=== PATIENT | male | born 1935 | race Caucasian/White ===

== ENCOUNTER → 2019-09-30 | Outpatient (CLI) | payer OTHER ==
[~2019-09-30] MED LIST: AMLO10TA7 PO; APIX5TAB PO; FURO20TA4 PO; GABA-531 PO; IPRA3AMP24 IH; METO-391 PO; OMEP20CA12 PO; SIMV-46 PO
== END | disposition home or self-care (01) ==
LOC: OIH 10:08
PROVIDERS: ATTEND Family Medicine
DX: J84.10 Pulmonary fibrosis, unspecified (principal); I10 Essential (primary) hypertension
CPT/HCPCS: 71046

== ENCOUNTER → 2019-10-06 | Outpatient (CLI) | payer OTHER | END | disposition home or self-care (01) | LOC: RAH 10:00 | PROVIDERS: ATTEND Family Medicine | DX: I08.1 Rheumatic disorders of both mitral and tricuspid valves (principal) | CPT/HCPCS: 93306; 93356 ==

== ENCOUNTER 2019-10-27 10:11 | Inpatient (IN) | payer OTHER ==
[~2019-10-27] VITALS: Ht 177.8 cm; Wt 85.7 kg
[2019-10-27 11:34] LABS: BASOPHILS % (AUTO) 0.1 % (0.0-5.0); EOSINOPHILS % (AUTO) 1.8 % (0.0-8.0); HEMATOCRIT 40.7 % (42-54); LYMPHOCYTES % (AUTO) 7.5 % (21.0-51.0); MEAN CORPUSCULAR HEMOGLOBIN 26.3 pg (27.0-33.0); MEAN CORPUSCULAR HGB CONC 32.4 g/dL (32.0-36.0); MEAN CORPUSCULAR VOLUME 81.1 fL (79-99); MONOCYTES % (AUTO) 9.2 % (3.0-13.0); NEUTROPHILS % (AUTO) 80.9 % (40.0-77.0); PLATELET COUNT (AUTO) 241 K/uL (130-400); RED BLOOD CELL COUNT(AUTO) 5.02 MIL/uL (4.50-6.20); RED CELL DISTRIBUTION WIDTH 15.7 % (11.0-15.5); WHITE BLOOD COUNT (AUTO) 13.5 K/uL (4.8-10.8)
[2019-10-27 11:38] LABS: CREATININE 1.4 mg/dL (0.5-1.5); POTASSIUM 3.8 mmol/L (3.5-5.1)
[2019-10-27 11:42] LABS: INR 1.08 (0.85-1.15); PARTIAL THROMBOPLASTIN TIME 27.8 SEC (26.3-35.5); PROTHROMBIN TIME 11.6 SEC (9.6-11.6)
[2019-10-27 11:43] LABS: ALBUMIN 3.2 g/dL (3.5-5.0); BILIRUBIN,TOTAL 0.7 mg/dL (0.2-1.0); TOTAL PROTEIN, SERUM 6.4 g/dL (6.0-8.3)
[2019-10-27 12:18] LABS: B-TYPE NATRIURETIC PEPTIDE 767 pg/mL (0-100)
[2019-10-27] MEDS ORDERED: IPRATROPIUM/ALBUTEROL SULFATE 3 ML SOLUTION IH ONE (13:03)
[2019-10-27] MEDS ORDERED: SODIUM CHLORIDE 0.9% 10 ML VIAL IVP PRN (16:30)
[2019-10-27] MEDS ORDERED: ASPIRIN 325 MG TABLET ONE (16:34)
[2019-10-27] MEDS ORDERED: FUROSEMIDE 10 MG/ML 4ML VIAL ONE (16:34)
[2019-10-27 17:28] LABS: CREATINE KINASE, TOTAL 221 U/L (21-232); MYOGLOBIN 140 ng/mL (10-92); TROPONIN I < 0.04 ng/mL (0.00-0.06)
[2019-10-27] MEDS ORDERED: METOPROLOL TARTRATE 25 MG TAB ONE (20:55)
[2019-10-27] MEDS: METOPROLOL TARTRATE 25 MG TAB PO SCH (21:00)
[2019-10-27 22:10] VITALS: BP 112/67
[2019-10-27] MEDS ORDERED: AMLO-258 PO (22:44)
[2019-10-27] MEDS ORDERED: SIMV-46 PO (22:44)
[2019-10-27] MEDS ORDERED: GABA-531 PO (22:44)
[2019-10-27] MEDS ORDERED: OMEP20CA12 PO (22:44)
[2019-10-27] MEDS ORDERED: FURO20TA4 PO (22:44)
[2019-10-27] MEDS ORDERED: APIX5TAB PO (22:44)
[2019-10-27] MEDS ORDERED: METO-391 PO (22:44)
[2019-10-27] MEDS: FUROSEMIDE 10 MG/ML 4ML VIAL IVP SCH (23:00)
[2019-10-28 00:40] LABS: CREATINE KINASE, TOTAL 204 U/L (21-232); MYOGLOBIN 191 ng/mL (10-92); TROPONIN I < 0.04 ng/mL (0.00-0.06)
[2019-10-28 04:00] VITALS: BP 96/52
[2019-10-28] MEDS: FUROSEMIDE 10 MG/ML 4ML VIAL IVP SCH ×2 (05:00→16:53)
[2019-10-28 08:10] VITALS: BP 105/75
[2019-10-28] MEDS ORDERED: ASPIRIN 325 MG TABLET PO SCH (09:00)
--- NOTE | 2019-10-28 09:30 | NUR ---
CHART REVIEWED, PT DISCUSSED WITH PRIMARY RN YASMANI ADVISED BY YASMANI THAT HOME MEDS HAVE NOT YET BEEN STARTED. NOT MADE FO AMLOPINES, ETC THAT ARE NOT YET ON MED LIST. YASMANI STATES PT SHORT OF BREATH, HAD TO BE PUT ON OXYGEN FOR RESPRIAOTRY EFFORT. SPOKE TO PATIENT AT BEDSIDE. PATIENT LIVES ALONE, IS A , CONFIRMED DOES NOT USE O2 AT HOME. CURRENTLY BEING DIURESED, WILL EXPECT THIS WILL ALLEVIATE SOME OF THE RESP ISSUES. DO NOT EXPECT PT TO NEED O2 OR PLACEMENT ON DISCHARGE..PENDING DETAILED IA BY TUMBLER TENDER. Addendum: 10/28/19 at 1243 by ZIA CHAVEZ RN CM Amended: Links added.
[2019-10-28] MEDS ORDERED: IPRA3AMP24 IH (09:32)
[2019-10-28] MEDS: METOPROLOL TARTRATE 25 MG TAB PO SCH ×2 (09:34→20:08)
[2019-10-28] MEDS ORDERED: ENOXAPARIN SODIUM 1 MG/KG SQ SCH (10:00)
[2019-10-28] MEDS: ENOXAPARIN SODIUM 100 MG/1 ML SQ SCH ×2 (10:50→20:07)
[2019-10-28 10:59] LABS: BASOPHILS % (AUTO) 0.2 % (0.0-5.0); HEMATOCRIT 41.9 % (42-54); LYMPHOCYTES % (AUTO) 9.4 % (21.0-51.0); MEAN CORPUSCULAR HEMOGLOBIN 26.1 pg (27.0-33.0); MEAN CORPUSCULAR HGB CONC 31.7 g/dL (32.0-36.0); MEAN CORPUSCULAR VOLUME 82.3 fL (79-99); MONOCYTES % (AUTO) 9.5 % (3.0-13.0); NEUTROPHILS % (AUTO) 78.4 % (40.0-77.0); PLATELET COUNT (AUTO) 253 K/uL (130-400); RED BLOOD CELL COUNT(AUTO) 5.09 MIL/uL (4.50-6.20); RED CELL DISTRIBUTION WIDTH 15.8 % (11.0-15.5)
[2019-10-28 11:00] VITALS: BP 106/70
[2019-10-28 11:05] LABS: CREATININE 1.3 mg/dL (0.5-1.5); POTASSIUM 3.5 mmol/L (3.5-5.1)
--- NOTE | 2019-10-28 13:21 | NUR ---
INITIAL SW spoke patient. Patient states he lives alone. Emergency contact is his daughter, Aura Schmitt, . No home services. DME: BPM, shower chair, nebulizer. Patient is able to complete ADL's independently and drives. PCP is Dr. Robles Campbell. Pharmacy is [facility] located on [facility] [place]. DCP is home. Addendum: 10/28/19 at 1324 by ANJEL CONDE SS Amended: Links added. Addendum: 10/28/19 at 1325 by ANJEL CONDE SS SW contacted Radha Guerrier, Inpatient Contract Cancer Program Consultant at [place]. [facility]hy informed GIRISH that patient was Not Service Connected. CM made aware.
[2019-10-28 16:00] VITALS: BP 116/61
[2019-10-28 20:24] VITALS: BP 115/66
[2019-10-28] MEDS ORDERED: SIMVASTATIN 20 MG TABLET PO SCH (21:00)
[2019-10-29 00:32] VITALS: BP 98/62
[2019-10-29 04:17] VITALS: BP 91/51
[2019-10-29] MEDS: FUROSEMIDE 10 MG/ML 4ML VIAL IVP SCH (05:50)
[2019-10-29 08:00] VITALS: BP 100/68
--- NOTE | 2019-10-29 08:25 | NUR ---
SPOKE WITH DR. LUA CARDIO STATES PATIENT WILL NEED A 2D ECHO
[2019-10-29] MEDS ORDERED: ASPIRIN 81MG TAB.CHEW PO SCH (09:00)
[2019-10-29] MEDS: METOPROLOL TARTRATE 25 MG TAB PO SCH (09:43)
[2019-10-29] MEDS: ENOXAPARIN SODIUM 100 MG/1 ML SQ SCH (09:45)
[2019-10-29] MEDS ORDERED: REGADENOSON 0.4 MG/5 ML PF SYG IVP SCH (10:30)
[2019-10-29 16:00] VITALS: BP 154/63
--- NOTE | 2019-10-29 18:02 | NUR ---
STRESS TEST RESULTS BACK, PAGED DR. LUA
[2019-10-29] MEDS ORDERED: POTASSIUM CHLORIDE 20 MEQ ERTAB PO ONE (18:25)
--- NOTE | 2019-10-29 18:28 | NUR ---
INFLUENZA VACCINE STATES HAD INFLUENZA VACCINE IN Addendum: 10/29/19 at 1832 by BELEN FARRIS RN Amended: Links added.
--- NOTE | 2019-10-29 18:40 | NUR ---
DR LUA ORDERED K KCL 20MEQ 1 TAB BY MOUTH DAILY CALLED IN TO [facility]. SPOKE WITH PHARMACIST KATEY.
[2019-10-29] MEDS ORDERED: POTASSIUM CHLORIDE 20 MEQ ERTAB PO SCH (18:45)
--- NOTE | 2019-10-29 18:48 | NUR ---
PT D/C HOME BY CHARGE NURSE BELEN CR OUT, INTACT, NO BLEEDING, PT DENIES ANY CONCERNS, AWARE TO CCALL 911 IF CHEST PAIN OR SOB OCCURS AND DOES NOT RESOLVE WITH REST. PT WILL FOLLOW UP WITH DR. LUA NEXT FRIDAY AND DR. CURTIS ON FRIDAY.
[2019-10-30] MEDS ORDERED: FUROSEMIDE 40 MG TABLET PO SCH (09:00)
== END 2019-10-29 18:40 | disposition home or self-care (01) | DRG 292 ==
LOC: EDH 10:11 → EDHIP 10:12 → OBSVTOIN 10:12 → 4BH 22:24
PROVIDERS: ADMIT Family Medicine; ATTEND Family Medicine
DX: I11.0 Hypertensive heart disease with heart failure (principal); I48.20 Chronic atrial fibrillation, unspecified; I50.43 Acute on chronic combined systolic (congestive) and diastolic (congestive) heart failure; E78.5 Hyperlipidemia, unspecified; J44.9 Chronic obstructive pulmonary disease, unspecified; K21.9 Gastro-esophageal reflux disease without esophagitis; Z79.01 Long term (current) use of anticoagulants; Z87.891 Personal history of nicotine dependence; Z95.0 Presence of cardiac pacemaker
CPT/HCPCS: 36415; 71045; 78452; 80048; 80053; 82550; 83874; 83880; 84484; 85025; 85610; 85730; 93005; 93017; 94640; 96374; A9500; G0378; J1650; J1940; J2785